=== PATIENT | female | born 1955 | race Caucasian/White ===

== ENCOUNTER → 2019-11-14 | Outpatient (CLI) | payer OTHER ==
[~2019-11-14] MED LIST: CITA20TA9 PO; OMEP20CA16 PO; POTA10TA17 PO; SIMV5TAB14 PO
--- NOTE | 2019-11-14 14:10 | PAIN ---
DATE OF SERVICE: 11/14/2019 INITIAL CONSULTATION FOR PAIN CLINIC CHIEF COMPLAINT: Low back and left lower extremity pain. HISTORY OF PRESENT ILLNESS: The patient is a 64-year-old female who presents with history of pain for about 5 months, not a result of any specific injury or action that she is aware of, but has some pain in the low back and this became noticeable with daily activities. The patient reports it is getting worse now across the low back and the mid back and into the left groin and anterior thigh. The patient reports it is constant, becoming more sharp, throbbing and shooting, changes during the day, worse with walking, standing, changing positions, better with sitting, lying down, but does awaken her from sleep at least 4-6 times a night especially when lies left side. The patient reports she cannot walk long distances more than about 15 minutes, does affect her ability to walk. She is not using any assistive devices. The patient reports that it affects her bowel and bladder control, but no incontinence, has some increased frequency with increased pain. The patient rates disability from 0-10, 10 being the worst, is a 7 with family and home responsibilities and sexual behavior, 9 with recreation and 5 with social activity, 6 with occupation, 5 with self-care and life support activities. The patient did have CT scan of the lumbar spine showing surgical changes of posterior fusion from L2-L4 with an unchanged L3 burst fracture, probable osseous fusion in the posterolateral gutters at L2-L3 and L3-L4 with moderate degenerative disk disease, T12, L1-L2 and mild degenerative disk disease L4. The patient reports she has had physical therapy in the past, nothing recently. No previous chiropractic treatments, no other modalities except for some stretching exercises that she does daily and again she is still trying to walk as much as she can, but it is limiting her significantly. The patient reports she is taking tramadol, which is helpful, but only very temporary. Denies any other modalities or medicines at this time. PAST MEDICAL HISTORY: Significant for dizziness, headaches, arthritis, depression, gastroesophageal reflux, hyperlipidemia, hearing loss in the left ear. PREVIOUS SURGERY: Include lumbar fusion in 1987, L2-L4 with posterior instrumentation, tubal ligation in 1991, right rotator cuff repair x 2 and right wrist fracture with ORIF and hardware placed as well. CURRENT MEDICATIONS: Include omeprazole, Celexa, simvastatin, potassium, and tramadol. ALLERGIES: THE PATIENT IS ALLERGIC TO FLU VACCINE, but no other medical allergies. FAMILY HISTORY: Significant for breast cancer and lung cancer. SOCIAL HISTORY: The patient drinks about 2 beers twice a week. Did not use any illegal, illicit or recreational drugs. Does not smoke. Denies any other medications or drugs. She is , lives with her spouse, lives locally in [place], [place] and is currently retired. REVIEW OF SYSTEMS: The patient's review of systems is positive for those items mentioned in history of present illness. All systems reviewed and otherwise negative. It is complete, full and well documented on the patient's chart. PHYSICAL EXAMINATION: VITAL SIGNS: The patient's blood pressure is 131/80, pulse 75, respirations 16, temperature 98.1 degrees Fahrenheit, height is 5 feet 6 inches, weight 157 pounds. GENERAL: The patient is awake, alert, oriented, appropriate, very pleasant demeanor. HEENT: Shows normocephalic, atraumatic. Extraocular movements are intact and symmetrical. Oral cavity: Mucous membranes moist and pink. Dentition is intact. NECK: Shows anterior throat supple without palpable lymphadenopathy noted. Swallow reflex symmetrical. CHEST: Shows normal on inspection. Breath sounds clear bilaterally. No rales, rhonchi or wheezes auscultated. HEART: Shows S1, S2 clear. No murmurs auscultated. ABDOMEN: Soft, obese, nontender, nondistended. No palpable organomegaly is noted. No rebound or guarding demonstrated. BACK: Shows spine grossly in the midline. Some significant flattening of lumbar lordotic curvature with well-healed surgical scarring, but normal thoracic kyphosis and cervical lordotic curvature. Lumbar paraspinous muscle shows roughly symmetrical with palpation, very firm and tender throughout the upper, middle and lower distribution of paraspinous muscles bilaterally. No specific tenderness over the spinous processes, sacroiliac regions over the posterior superior iliac spine or the sacrum itself with direct palpation. The patient shows some limited rotation secondary to fusion, especially with extension and forward flexion without significant increase in pain with rotational motion, right and left as well as extension and flexion. EXTREMITIES: Lower extremities show deep tendon reflexes at 2+ in the patellar, 1+ tendo-calcaneus tendons. Motor exam is strong with 5/5 dorsiflexion, extension, quadriceps and hamstring flexion symmetrical. Peripheral pulses are 1+. No peripheral edema is noted. Lower extremities are warm and dry to touch, equal in color and appearance. Straight leg raise noted to be negative for reproduction of radicular symptoms. Gaenslen's and Donnell's maneuvers are negative bilaterally as well. The patient is able to stand, stand on her toes without significant difficulty or loss of balance, walks with a normal appearing gait for short distance in the office, not using any assistive devices. SKIN: Shows warm and dry, good turgor. No edema. No sores, rashes or bruising. IMPRESSION: 1. This is a 64-year-old female with history about 5 months of increasing pain in the low back, left lower extremity is noted. 2. CT scan of lumbar spine as noted. 3. History of arthritis. 4. Previous lumbar fusion. 5. Hyperlipidemia. 6. Hearing loss. PLAN: Options were discussed with the patient and the patient's spouse who accompanied her visit today including conservative medical managements, physical therapies, interventional techniques and she would like to pursue interventional techniques as she reports she had some success with these in the distant past in outside facility. We discussed lumbar epidural steroid injection using description as well as anatomical models to describe the procedure. The patient will wait for preauthorization with her insurance provider and have her return for lumbar epidural steroid injection at that time once approval is obtained. In the meantime, the patient will continue with stretching and strength exercises as well as walking as tolerated. GRACIE BHATT MD DR: DANIEL/noe JOB#: [id number] / [id number] Kiran Hernández MD
== END | disposition home or self-care (01) ==
LOC: PNCL 08:22
PROVIDERS: ATTEND Anesthesiology
DX: M54.5 Low back pain (principal); H91.8X2 Other specified hearing loss, left ear; E78.5 Hyperlipidemia, unspecified; I10 Essential (primary) hypertension; K21.9 Gastro-esophageal reflux disease without esophagitis; F32.9 Major depressive disorder, single episode, unspecified; M19.90 Unspecified osteoarthritis, unspecified site; Z88.8 Allergy status to other drugs, medicaments and biological substances; Z79.899 Other long term (current) drug therapy; Z80.3 Family history of malignant neoplasm of breast; Z80.1 Family history of malignant neoplasm of trachea, bronchus and lung
CPT/HCPCS: G0463

== ENCOUNTER → 2019-11-28 | Outpatient (CLI) | payer OTHER ==
[~2019-11-28] MED LIST changes: +IOHEXOL 180 MG/ML 10 ML VIAL. ONE; +methylPREDNISolone ACETATE 40 MG/ML VIAL. ONE; +methylPREDNISolone ACETATE 80 MG/ML VIAL. ONE
--- NOTE | 2019-11-28 09:02 | PDOC ---
Progress Note - Pain Clinic Date of Service: DOS: DATE: 11/28/19 TIME: 08:57 Diagnosis: Dx: Lumbar decapitate lumbar degenerative disease lumbar postlaminectomy syndrome History or Present Illness: HPI: 64-year-old female returns follow-up status post previous initial evaluation and preauthorization for lumbar epidural steroid injection. Patient is obtained this now would like to proceed. Patient reports still pain in the low back in the left side radiating to the left flank and into the left anterior thigh and groin. Patient reports getting worse over the past week is rated a 9 on a scale of 10 at its worst 7 on average 5 decrease in 7 today patient reports that sharp tight burning can be unbearable with walking standing changing position especially when she first gets out of bed in the morning. Patient reports no new motor or sensory deficits no new bowel or bladder incontinence or other complaints. Physical Exam: VS: Blood pressure 108/66 pulse 71 respiration 16 temperature 98.3 F height is 5 feet 6 inches weight is 1 5 7 pounds PE: PHYSICAL EXAMINATION: GENERAL: The patient is awake, alert, oriented, appropriate, very pleasant demeanor HEENT: Shows normocephalic, atraumatic. Extraocular movements are intact and symmetrical. Oral cavity: Mucous membranes moist and pink. NECK: Shows anterior throat supple without palpable lymphadenopathy noted. Swallow reflex symmetrical. CHEST: Shows normal on inspection. Breath sounds are clear bilaterally no rales rhonchi or wheezes.. HEART: Shows S1, S2 clear. No murmurs auscultated. ABDOMEN: Soft, nontender, nondistended. No palpable organomegaly is noted. No rebound or guarding demonstrated. BACK: Shows spine grossly in the midline. Normal-appearing cervical lordotic curvature. There is slightly increased thoracic kyphosis, some minor flattening of the lumbar lordotic curvature. Lumbar paraspinous muscles show symmetrical on inspection, on palpation shows some moderate tenderness diffusely throughout the upper, middle and lower distribution of the paraspinous muscles bilaterally and also into the lower thoracic paraspinous musculature, firm and tender, but without specific trigger points, without radiation of pain. The patient has good rotational motion of the lumbar spine, both laterally as well as extension and flexion without significant difficulty. No tenderness over the spinous processes, sacrum or sacroiliac regions. EXTREMITIES: Lower extremities show deep tendon reflexes 2+ in the patellar and tendo calcaneus tendons. Motor exam is 5 on a scale of 5 with right dorsiflexion, extension, quadriceps and hamstring flexion and 5/5 on the left. Peripheral pulses are 1+ posterior tibial. No peripheral edema is noted bilaterally. Lower extremities are warm and dry to touch, equal in color and appearance. The patient is able to stand stand on her toes walks with a normal- appearing gait without any assistive devices.. SKIN: Shows warm and dry, good turgor. No edema. No sores, rashes or bruising throughout. Options were discussed with the patient. The patient's old chart was reviewed and current medication regimen updated. [] Procedure: Procedure: Options were discussed with the patient. Patient will chart reviews her current medication regimen updated current review of systems updated today as well and we will proceed with a lumbar epidural steroid injection today with fluoroscopic guidance. Risks are discussed including but not limited to bleeding infection possibility of epidural hematoma subsequent neurologic compromise dural puncture headache spinal cord and or nerve damage side effects of steroid medication and/guarding pain control. Patient understands wished to proceed. Patient return to clinic in approximately 2 weeks for follow-up. Was counseled to return appointment activity level and side effects be aware. Medication Injected: Med Injected: Procedure is lumbar epidural steroid injection under local anesthetic using sterile prep and drape at the L1 -2 level using C-arm fluoroscopic guidance in both AP and lateral views medications injected is 120 mg Depo-Medrol + 10 mL preservative-free normal saline and 2 mL Isovue for contrast- condition at discharge is stable patient tolerated procedure well had no complications. Condition at Discharge: Condition at Discharge: Condition at discharge is stable patient tolerated the procedure well had no complications. GRACIE BHATT MD Nov 28, 2019 09:02
== END | disposition home or self-care (01) ==
LOC: PNCL 08:09
PROVIDERS: ATTEND Anesthesiology
DX: M51.36 Other intervertebral disc degeneration, lumbar region (principal); M96.1 Postlaminectomy syndrome, not elsewhere classified; K21.9 Gastro-esophageal reflux disease without esophagitis; I10 Essential (primary) hypertension; E78.5 Hyperlipidemia, unspecified; Z79.899 Other long term (current) drug therapy
CPT/HCPCS: 62323; J1030; J1040; Q9965

== ENCOUNTER → 2019-12-12 | Outpatient (CLI) | payer OTHER ==
--- NOTE | 2019-12-12 08:33 | PDOC ---
Progress Note - Pain Clinic Date of Service: DOS: DATE: 12/12/19 TIME: 08:29 Diagnosis: Dx: Lumbar radiculopathy with lumbar degenerative disc disease lumbar postlaminectomy syndrome History or Present Illness: HPI: 64-year-old female returns follow-up status post lumbar epidural to injection x1. Patient points out 75% improvement after the last injection very happy with her progress has been increasing her activity with greater ease and comfort walking greater distances during work activities household activities sleeping better and walking better with no new motor or sensory deficits. Patient which is sleeping better at night does not awaken her from sleep. Patient reports still some pain in the low back more on the left than the right but mainly just in the back now and not so much in his lower extremity rated as a 4 on a scale of 10 is worst over the past week 3 on average to its least is a 2 today. Patient ports pain is sharp and aching but on and off in intensity and is very minimal currently reports no new motor or sensory deficits no new bowel bladder incontinence or other complaints. Physical Exam: VS: Blood pressure 123/78 pulse 76 respirations 18 temperature is 97.8 F height is 5 foot 6 inches weight is 157 pounds PE: PHYSICAL EXAMINATION: GENERAL: The patient is awake, alert, oriented, appropriate, very pleasant demeanor HEENT: Shows normocephalic, atraumatic. Extraocular movements are intact and symmetrical. Oral cavity: Mucous membranes moist and pink. NECK: Shows anterior throat supple without palpable lymphadenopathy noted. Swallow reflex symmetrical. CHEST: Shows normal on inspection. Breath sounds are clear bilaterally. HEART: Shows S1, S2 clear. No murmurs auscultated. ABDOMEN: Soft, nontender, nondistended. No palpable organomegaly is noted. No rebound or guarding demonstrated. BACK: Shows spine grossly in the midline. Normal-appearing cervical lordotic curvature. There is slightly increased thoracic kyphosis, some minor flattening of the lumbar lordotic curvature. Lumbar paraspinous muscles show symmetrical on inspection, on palpation shows some moderate tenderness diffusely throughout the upper, middle and lower distribution of the paraspinous muscles bilaterally without specific trigger points, without radiation of pain. The patient has good rotational motion of the lumbar spine, both laterally as well as extension and flexion without significant difficulty. No tenderness over the spinous processes, sacrum or sacroiliac regions. EXTREMITIES: Lower extremities show deep tendon reflexes 2+ in the patellar and tendo calcaneus tendons. Motor exam is 5 on a scale of 5 with right dorsiflexion, extension, quadriceps and hamstring flexion and 5/5 on the left. Peripheral pulses are 1+ posterior tibial. No peripheral edema is noted bilaterally. Lower extremities are warm and dry to touch, equal in color and appearance. SKIN: Shows warm and dry, good turgor. No edema. No sores, rashes or bruising throughout. Procedure: Procedure: Options were discussed with the patient. Patient's old chart was reviewed as her current medication regimen updated current review of systems updated today as well. We will proceed with a second in the series lumbar epidural steroid injection today with fluoroscopic guidance. Risks were again discussed including but not limited to bleeding infection possibility of epidural hematoma subsequent neurological compromise dural puncture headache spinal cord and or nerve damage side effects of steroid medication and/guarding pain control. Patient understands and wishes to proceed. Patient return to clinic in approximate 2 weeks for follow-up was counseled as to return appointment activity level and side effects to be aware of. Medication Injected: Med Injected: Procedure is lumbar epidural steroid injection under local anesthetic using sterile prep and drape at the L1 to level using C-arm fluoroscopic guidance in both AP and lateral views medications injected is 120 mg Depo-Medrol +[]mL preservative-free normal saline and 2 mL contrast- condition at discharge is stable patient tolerated procedure well had no complications. Condition at Discharge: Condition at Discharge: Condition at discharge stable patient tolerated the procedure well had no complications. GRACIE BHATT MD Dec 12, 2019 08:33
== END | disposition home or self-care (01) ==
LOC: PNCL 08:07
PROVIDERS: ATTEND Anesthesiology
DX: M51.16 Intervertebral disc disorders with radiculopathy, lumbar region (principal); M96.1 Postlaminectomy syndrome, not elsewhere classified; I10 Essential (primary) hypertension; K21.9 Gastro-esophageal reflux disease without esophagitis; E78.5 Hyperlipidemia, unspecified; F41.9 Anxiety disorder, unspecified; F32.9 Major depressive disorder, single episode, unspecified; Z79.899 Other long term (current) drug therapy
CPT/HCPCS: 62323; J1030; J1040; Q9965

== ENCOUNTER → 2020-01-24 | Outpatient (CLI) | payer OTHER ==
--- NOTE | 2020-01-24 09:36 | PDOC ---
Progress Note - Pain Clinic Date of Service: DOS: DATE: 01/24/20 TIME: 09:33 Diagnosis: Dx: Lumbar radiculopathy with lumbar degenerative disease and lumbar postlaminectomy syndrome History or Present Illness: HPI: 64-year-old female returns follow-up status post lumbar epidurals or injection x2. Patient reports about 75% improvement after the first injection but not as much improvement after the second. Patient reports still pain the low back left side and flank as well as the left anterior groin and anterior thigh patient reports is a 7 on a scale of 10 is worse over the past week for an average to its least is a 4 today patient was aching sharp on and off in intensity worse with activity standing walking changing positions beginning awaken her from sleep again after last injection she was doing better with walking and resting as well as doing household activities with greater ease and comfort and traveling with better comfort but the pain is returning now in the low back left lower extremity as described. Patient reports no new motor or sensory deficits no new bowel or bladder incontinence or other complaints. Physical Exam: VS: Blood pressure is 138/81 pulse 83 respirations 16 temperature 98.7 F height 5 feet 6 inches weight 161 pounds PE: PHYSICAL EXAMINATION: GENERAL: The patient is awake, alert, oriented, appropriate, very pleasant de meanor HEENT: Shows normocephalic, atraumatic. Extraocular movements are intact and symmetrical. Oral cavity: Mucous membranes moist and pink. NECK: Shows anterior throat supple without palpable lymphadenopathy noted. Swallow reflex symmetrical. CHEST: Shows normal on inspection. Breath sounds are clear bilaterally, no rales rhonchi or wheezes. HEART: Shows S1, S2 clear. No murmurs auscultated. ABDOMEN: Soft, nontender, nondistended. No palpable organomegaly is noted. No rebound or guarding demonstrated. BACK: Shows spine grossly in the midline. Normal-appearing cervical lordotic curvature. There is slightly increased thoracic kyphosis, some minor flattening of the lumbar lordotic curvature, well-healed surgical scars noted in the midline. Lumbar paraspinous muscles show symmetrical on inspection, on palpation shows some moderate tenderness diffusely throughout the upper, middle and lower distribution of the paraspinous muscles bilaterally and also into the lower thoracic paraspinous musculature, firm and tender, but without specific trigger points, without radiation of pain. The patient has good rotational motion of the lumbar spine, both laterally as well as extension and flexion without significant difficulty. No tenderness over the spinous processes, sacrum or sacroiliac regions. EXTREMITIES: Lower extremities show deep tendon reflexes 2+ in the patellar and tendo calcaneus tendons. Motor exam is 5 on a scale of 5 with right dorsiflexion, extension, quadriceps and hamstring flexion and 5/5 on the left. Peripheral pulses are 1+ posterior tibial. No peripheral edema is noted bilaterally. Lower extremities are warm and dry to touch, equal in color and appearance. SKIN: Shows warm and dry, good turgor. No edema. No sores, rashes or bruising throughout. Procedure: Procedure: Options were discussed with the patient. Patient's old chart was reviewed his current medication regimen updated current review of systems updated today as well. We will proceed with a third in the series lumbar epidural straight injection today with fluoroscopic guidance. Risks were discussed including but not limited to: Bleeding, infection, possibility of epidural hematoma and subsequent neurological compromise, dural puncture, headaches, spinal cord and/or nerve damage, side effects of steroid medication, and poor results regarding pain control. Patient understands wished to proceed. Patient return to clinic in approximate 2 weeks for follow-up with counselors return appointment activity level and side effects to be aware of. Medication Injected: Med Injected: Procedure is lumbar epidural steroid injection under local anesthetic using sterile prep and drape at the L1-2 to level using C-arm fluoroscopic guidance in both AP and lateral views medications injected is 120 mg Depo-Medrol + 10 mL preservative-free normal saline and 2 mL contrast- condition at discharge is stable patient tolerated procedure well had no complications. Condition at Discharge: Condition at Discharge: Condition at discharge is stable, patient tolerated procedure well had no complications. GRACIE BHATT MD Jan 24, 2020 09:36
== END | disposition home or self-care (01) ==
LOC: PNCL 08:37
PROVIDERS: ATTEND Anesthesiology
DX: M51.16 Intervertebral disc disorders with radiculopathy, lumbar region (principal); M46.1 Sacroiliitis, not elsewhere classified; I10 Essential (primary) hypertension; K21.9 Gastro-esophageal reflux disease without esophagitis; E78.5 Hyperlipidemia, unspecified; F41.9 Anxiety disorder, unspecified; F32.9 Major depressive disorder, single episode, unspecified; Z79.899 Other long term (current) drug therapy
CPT/HCPCS: 62323; J1030; J1040; Q9965

== ENCOUNTER → 2020-02-17 | Outpatient (CLI) | payer OTHER ==
[~2020-02-17] MED LIST changes: -IOHEXOL 180 MG/ML 10 ML VIAL. ONE; -methylPREDNISolone ACETATE 40 MG/ML VIAL. ONE; -methylPREDNISolone ACETATE 80 MG/ML VIAL. ONE
--- NOTE | 2020-02-17 08:17 | PDOC ---
Progress Note - Pain Clinic Date of Service: DOS: DATE: 02/17/20 TIME: 08:13 Diagnosis: Dx: Lumbar radiculopathy with lumbar degenerative disease and lumbar postlaminectomy syndrome History or Present Illness: HPI: 64-year-old female returns follow-up status post lumbar epidurals or injections x3. Patient reports about 45% improvement after the last injection about 75% after the first injections but the pain returning fairly significantly in the low back and into the left lower extremity primarily patient reports is a 10 on scale 10 is worse over the past week 7 on average 4 at its least and is a 7 today patient reports it is getting more difficult to stand and walk in the while the injections do help the only last for about a week or 2 and the pain returns. Patient reports no new motor or sensory deficit still waking her from sleep at night last every 2-3 hours patient reports worse with standing walking changing positions better with sitting but again awaken from sleep with laying down. Patient reports no new motor or sensory deficits no bowel or bladder incontinence describes pain is constant and unbearable in the low back and left leg aching and sharp also tight and dull alternating in the low back itself. Physical Exam: VS: Blood pressure is 120/75 pulse 72 respirations 18 temperature is 98.1 F height is 5 feet 6 inches weight is 160 pounds PE: PHYSICAL EXAMINATION: GENERAL: The patient is awake, alert, oriented, appropriate, very pleasant demeanor, patient accompanied by her HEENT: Shows normocephalic, atraumatic. Extraocular movements are intact and symmetrical. NECK: Shows anterior throat supple without palpable lymphadenopathy noted. Swallow reflex symmetrical. CHEST: Shows normal on inspection. Breath sounds are clear bilaterally, no rales rhonchi or wheezes. HEART: Shows S1, S2 clear. No murmurs auscultated. ABDOMEN: Soft, nontender, nondistended, obese. No palpable organomegaly is noted. No rebound or guarding demonstrated. BACK: Shows spine grossly in the midline. Normal-appearing cervical lordotic curvature. There is slightly increased thoracic kyphosis, some minor flattening of the lumbar lordotic curvature. Lumbar paraspinous muscles show symmetrical on inspection, on palpation shows some moderate tenderness diffusely throughout the upper, middle and lower distribution of the paraspinous muscles bilaterally without specific trigger points, without radiation of pain. The patient has good rotational motion of the lumbar spine, both laterally as well as extension and flexion without significant difficulty. No tenderness over the spinous processes, sacrum or sacroiliac regions. EXTREMITIES: Lower extremities show deep tendon reflexes 2+ in the patellar and tendo calcaneus tendons. Motor exam is 5 on a scale of 5 with right dorsiflexion, extension, quadriceps and hamstring flexion and 5/5 on the left. Peripheral pulses are 1+ posterior tibial. No peripheral edema is noted bilaterally. Lower extremities are warm and dry to touch, equal in color and appearance. SKIN: Shows warm and dry, good turgor. No edema. No sores, rashes or bruising throughout. Procedure: Procedure: Options were discussed with the patient. Patient's old chart was reviewed as her current medication regimen updated current review of systems updated today as well. She has had 3 epidural injections with good results but limited results and still significant pain in the low back left lower extremity. Patient was given information regarding spinal cord stimulation and she would like to review this and consider a trial stimulation. We will give her the information regarding psychiatric evaluation as well and patient will consider this and will follow-up if she desires to pursue a temporary stimulator lead placement. Medication Injected: Med Injected: None Condition at Discharge: Condition at Discharge: Condition at discharge is stable. GRACIE BHATT MD Feb 17, 2020 08:17
== END ==
LOC: PNCL 07:38
PROVIDERS: ATTEND Anesthesiology
DX: M51.16 Intervertebral disc disorders with radiculopathy, lumbar region (principal); M46.1 Sacroiliitis, not elsewhere classified; I10 Essential (primary) hypertension; K21.9 Gastro-esophageal reflux disease without esophagitis; F41.9 Anxiety disorder, unspecified; F32.9 Major depressive disorder, single episode, unspecified; E78.5 Hyperlipidemia, unspecified; Z79.899 Other long term (current) drug therapy
CPT/HCPCS: 99212; G0463